=== PATIENT | female | born 1955 | race Caucasian/White ===

== ENCOUNTER 2017-02-27 19:03 | Emergency (ER) | payer SELFPAY ==
[~2017-02-27] VITALS: Ht 172.7 cm; Wt 115.6 kg
[2017-02-27] MEDS ORDERED: LASIX20 M1 PO (23:40)
[2017-02-27] MEDS ORDERED: GLIMEPIRIDE4 MG PO (23:40)
[2017-02-27] MEDS ORDERED: TENORMIN100 MG PO (23:40)
[2017-02-27] MEDS ORDERED: AMLODIPINE BESYL5 MG PO (23:40)
[2017-02-27] MEDS ORDERED: ZESTORETIC 20-1 EACH PO (23:40)
[2017-02-27] MEDS ORDERED: GLUCOPHAGE1000 MG PO (23:40)
[2017-02-28 00:05] VITALS: BP 161/81
== END 2017-02-28 00:01 | disposition home or self-care (01) ==
LOC: ED 19:03
DX: M25.561 Pain in right knee (principal); M25.461 Effusion, right knee; M79.661 Pain in right lower leg; E11.65 Type 2 diabetes mellitus with hyperglycemia; E87.6 Hypokalemia; T38.3X6A Underdosing of insulin and oral hypoglycemic [antidiabetic] drugs, initial encounter; T46.5X6A Underdosing of other antihypertensive drugs, initial encounter; Z91.120 Patient's intentional underdosing of medication regimen due to financial hardship; I89.0 Lymphedema, not elsewhere classified; I87.2 Venous insufficiency (chronic) (peripheral); H53.8 Other visual disturbances; I10 Essential (primary) hypertension
CPT/HCPCS: J1650; J1815; J1885; J7030